=== PATIENT | female | born 1970 ===

== ENCOUNTER 2022-04-16 09:45 | Day surgery (SDC) | payer OTHER ==
[~2022-04-16] VITALS: Ht 162.6 cm; Wt 84.4 kg
[2022-04-16] MEDS ORDERED: MIDAZOLAM 5 MG/5 ML VIAL ONE ×2 (10:23→11:00)
[2022-04-16] MEDS ORDERED: diphenhydrAMINE 50 MG/ML VIAL ONE (10:23)
[2022-04-16] MEDS ORDERED: fentaNYL citrate 0.05 MG/ML VIAL ONE ×2 (10:23→10:30)
[2022-04-16] MEDS ORDERED: MIDAZOLAM 5 MG/5 ML VIAL IV ONE (12:45)
[2022-04-16] MEDS ORDERED: fentaNYL citrate 0.05 MG/ML VIAL IVP ONE (12:45)
[2022-04-16] MEDS ORDERED: diphenhydrAMINE 50 MG/ML VIAL IVP ONE (12:45)
== END 2022-04-16 12:00 | disposition home or self-care (01) ==
LOC: MDS 09:45 → MMU 09:45 → MDS 12:00
PROVIDERS: ATTEND Internal Medicine Gastroenterology
DX: Z12.11 Encounter for screening for malignant neoplasm of colon (principal); K21.9 Gastro-esophageal reflux disease without esophagitis; K44.9 Diaphragmatic hernia without obstruction or gangrene; Z98.84 Bariatric surgery status; Z90.49 Acquired absence of other specified parts of digestive tract; Z79.899 Other long term (current) drug therapy; Z20.822 Contact with and (suspected) exposure to COVID-19
CPT/HCPCS: 43239; 45378; 81025; 87426; J1200; J2250; J3010; 88305